=== PATIENT | female | born 1980 | race Caucasian/White ===

== ENCOUNTER 2018-02-21 13:26 | Observation (INO) ==
--- NOTE | 2018-02-21 14:00 | Anesthesia Evaluation PreOp ---
Date of Encounter: 02/21/18 Time of Encounter: 14:49 - Past History Planned Operation: LAP APPENDECTOMY Cardiac History: Denies any Significant Hx Pulmonary History: Denies Any Significant HX LEAD REFINER History: Other (ANXIETY, DEPRESSION) Other Medical History: Thyroid, Other (MTHFR MUTATION, DIAGNOSED DURING , NO HISTORY OF DVT. PSORIASIS) Anesthesia History: No Prior Anesthetic Complications, Past Anesthesia : No Test: Negative Alcohol Use: occasionally Drug use: none Medications and Allergies Cholecalciferol (Vitamin D3) [Vitamin D3] 5,000 unit PO DAILY 09/30/15 [History] Vitamin B Complex 1 each PO DAILY 09/30/15 [History] Calcipotriene 1 applic TP DAILY 02/21/18 [History] Calcipotriene/Betamethasone [Calcipotriene-Betameth Dp Oint] 1 applic TP DAILY 02/21/18 [History] DULoxetine [Cymbalta] 30 mg PO DAILY 02/21/18 [History] Folic Acid 1 mg PO DAILY 02/21/18 [History] Levothyroxine [Synthroid] 50 mcg PO DAILY 02/21/18 [History] Allergy/AdvReac Type Severity Reaction Status Date / Time No Known Allergies Allergy Verified 02/21/18 09:34 - Meds/Allergy Pre-op Review Medications Reviewed: Yes Allergies Reviewed: Yes Beta Blockers on Current Med List: No Anesthesia Exam O2 Sat Height 1.57 m Weight 81.647 kg O2 Sat by Pulse Oximetry 98 Vital Signs Temp Pulse Resp BP Pulse Ox 98.4 F 70 16 129/66 98 02/21/18 14:00 02/21/18 14:00 02/21/18 14:00 02/21/18 14:00 02/21/18 14:00 Weight: 82 kg - BMI 33 NPO (# of Hours): 0700 - HEENT Mallampati: I Teeth: Normal Oral Opening: Greater than 3 - Cardiac Rhythm: Regular - Pulmonary Breath Sounds: bilateral Clear Respiratory Effort: Symmetrical Anesthesia Assess/Plan ASA Score: 2 Anesthetic Plan: General Monitoring Plan: Standard Monitors Recovery Plan: PACU
[2018-02-21] MEDS ORDERED: Ondansetron 4 MG/2 ML VIAL ONE ×2 (14:02→15:12)
[2018-02-21] MEDS ORDERED: Lidocaine -MPF 2% 2 ML VIAL ONE (14:02)
[2018-02-21] MEDS ORDERED: *HR* Propofol 200 MG/20 ML VIAL IVP ONE (14:02)
[2018-02-21] MEDS ORDERED: Dexamethasone 4 MG/ML VIAL ONE ×2 (14:02→15:12)
[2018-02-21] MEDS ORDERED: Lidocaine -MPF 4% 5 ML AMPUL ONE (14:02)
[2018-02-21] MEDS ORDERED: *HR* Succinylcholine 200 MG/10 ML VIAL IVP ONE (14:02)
[2018-02-21] MEDS ORDERED: *HR* Rocuronium Bromide 50 MG/5 ML VIAL ONE (14:02)
[2018-02-21] MEDS ORDERED: *HR* Midazolam HCl 2 MG/2 ML VIAL ONE (14:02)
[2018-02-21] MEDS ORDERED: *HR* FentaNYL (PF) 100 MCG/2 ML VIAL ONE (14:02)
--- NOTE | 2018-02-21 14:22 | General Surg History&Physical ---
Date of Encounter: 02/21/18 Time of Encounter: 14:00 History of Present Illness Chief complaint: Acute RLQ abd pain, acute appendicitis HPI: Ms. Gray is a 37 year old female transferred from [facility] after presenting there with abrupt onset right lower quadrant abdominal pain and nausea early this morning. The patient also complained of diarrhea. Patient presented to [facility] for further evaluation and treatment. White count was normal but CT abdomen/pelvis was indicative of early acute appendicitis. This prompted a surgical referral and transferred to [facility]. Past medical history: MTH FR, clotting disorder; depression, hypothyroidism History: 2 Allergies: No known drug allergies Medications: Synthroid, Celexa, multivitamins Social history: G5, P2, AB 3. Patient is , lives at home with her spouse and 2 children; she is a schoolteacher. The patient does not consume alcohol, tobacco or use illicit drugs. Physical examination: Age-appropriate, overweight female who appears to be in no acute distress. Skin: Warm, no obvious jaundice Lungs: Clear to auscultation, no abdominal pain on deep inspiration Cardiac: Regular rate, no appreciable murmurs Abdomen: soft with tenderness in the right lower quadrant just cephalad and medial to the anterior superior iliac spine. Bowel sounds hypoactive No discernible intra-abdominal masses; no rebound. Extremities: No obvious clubbing, cyanosis, or edema. CT abdomen/pelvis reviewed Laboratories: White count 10.0, differential within normal limits; hemoglobin 13.3, hematocrit 39.2. Platelets 220,000 Electrolytes, BUN, creatinine within normal limits Serum negative Impression: 37-year-old female transferred from a [facility] after presenting there with abrupt onset right lower quadrant abdominal pain with nausea. Clinical exam and CT abdomen/pelvis consistent with early acute appendicitis. Treatment options include expectant follow-up with IV antibiotics and close clinical monitoring versus surgical intervention. The patient is a reasonable candidate for laparoscopic appendectomy. The patient expressed a preference to proceed with surgery. The procedure was discussed. Risks include hemorrhage, infection, injury to adjacent structures such as colon, small bowel, ureters, bladder. The patient has a clotting disorder, this may increase her vascular risks postoperatively. The patient is aware that if a normal appendix is encountered it will be removed regardless. An open appendectomy may be necessary laparoscopic procedure cannot be completed safely. Plan: Laparoscopic appendectomy possible open appendectomy with subsequent [facility] admission to the surgical floor for postoperative care. Past Med Surg Social Fam HX - Past Medical History Medical history: thyroid disease Additional medical history: MTHR Psychiatric history: no psych history - Past Surgical History Surgical History: Additional surgical history: metal plate in head - Social History Smoking Status: Never smoker Smokeless Tobacco Status: No Alcohol use: occasionally Drug use: none Medications and Allergies Cholecalciferol (Vitamin D3) [Vitamin D3] 5,000 unit PO DAILY 09/30/15 [History] Vitamin B Complex 1 each PO DAILY 09/30/15 [History] DULoxetine [Cymbalta] 30 mg PO DAILY 02/21/18 [History] Folic Acid 1 mg PO DAILY 02/21/18 [History] Levothyroxine [Synthroid] 50 mcg PO DAILY 02/21/18 [History] Allergy/AdvReac Type Severity Reaction Status Date / Time No Known Allergies Allergy Verified 02/21/18 09:34 Review of Systems All systems PM: The remainder of the systems were reviewed and are negative General Surgery Exam Initial Vital Signs Temp Pulse Resp BP Pulse Ox 98.4 F 70 16 129/66 98 02/21/18 14:00 02/21/18 14:00 02/21/18 14:00 02/21/18 14:00 02/21/18 14:00 Results - Labs All other labs normal.
[2018-02-21] MEDS ORDERED: Scopolamine Patch 1.5 MG PATCH.TD72 ONE (14:43)
[2018-02-21] MEDS ORDERED: cefOXitin 2,000 MG in Water for inj. (sterile) 20 ML 20 ML IVP ONE (15:08)
[2018-02-21] MEDS ORDERED: CefOXitin 2,000 MG VIAL ONE (15:12)
[2018-02-21] MEDS ORDERED: Ketorolac 30 MG/ML VIAL ONE (15:13)
[2018-02-21] MEDS ORDERED: *HR* OxyCODONE Immed Rel 5 MG TABLET PO PRN ×2 (15:48→16:53)
[2018-02-21] MEDS ORDERED: *HR* HYDROmorphone (PF) 1 MG/ML SYRINGE IVP PRN (15:48)
[2018-02-21] MEDS ORDERED: *HR* Promethazine 25 MG/ML VIAL IVP PRN ×2 (15:48→16:53)
[2018-02-21] MEDS ORDERED: Albuterol 2.5 MG/3 ML NEBULIZER IH ONE (15:48)
--- NOTE | 2018-02-21 16:09 | Anesthesia Evaluation Post Op ---
Date of Encounter: 02/21/18 Time of Encounter: 16:30 - Discharge PostOp Status: Transfer Patient to floor (Patient's vital signs have been reviewed. Patient is stable postoperatively and has adequately recovered from anesthesia. Patient is determined to have stable airway patency and respiratory function including respiratory rate and oxygen saturation. Patient has a stable heart rate, blood pressure and adequate hydration. Patients mental status is acceptable. Patients temperature is appropriate. Pain and nausea are adequately controlled.)
[2018-02-21] MEDS ORDERED: Ringers Solution, Lactated 500 ML IVC ONE (16:15)
--- NOTE | 2018-02-21 16:21 | Operative Note ---
Date of procedure: 02/21/18 Pre-op diagnosis: Acute appendicitis Post-op diagnosis: same Procedure: Laparoscopic appendectomy Complications: None apparent Anesthesia: GETA Local Anesthetics: 0.25% Sensorcaine HCL with Epinephrine 1:200,000 SubQ (cc) (20 mL) Surgeon: Sandor Mckinney Was there an butcher assistant present: No Estimated blood loss (cc): 2 IV fluids (cc): 800 Specimen: appendix Condition: stable Disposition: PACU Procedure in Detail: The patient was brought to the operating room where she was placed supine on the procedure table. The patient was appropriately identified as to person and proc edure. The accuracy of this information was confirmed by the patient and procedure team. The patient was then intubated and anesthetized under the supervision of Dr. Luis. The abdomen was prepped and draped in usual sterile fashion. An examined under anesthesia the no palpable intra-abdominal masses. Several milliliters of 0.25% bupivacaine with 1 200,000 epinephrine was infiltrated into the infraumbilical skin. A small transverse incision was made. Dissection was extended to the fascia. Additional bupivacaine was infiltrated into the fascia. The fascia was grasped, elevated, and incised. An 11 mm Xcel port was established. The rigid laparoscope was placed within the obturator to visualize passage through the layers of the anterior abdominal wall. When the abdominal cavity was accessed, the obturator was replaced by the rigid laparoscope, the abdomen was insufflated with gaseous carbon dioxide. There was no obvious visible injury from establishing the port. Recta visualization a 5 mm port was placed in the suprapubic midline. The uterus was adherent to the anterior abdominal wall. Port placement was selected above or cephalad to the adherent uterus. A 12 mm port was established in left lower quadrant midclavicular line. Both of these sites were infiltrated with the bupivacaine with epinephrine solution. The appendix was readily identified, grasped, and elevated. The mesoappendix was divided with the endoscopic [place] dissectors at the junction between the appendix and the cecum. An Ethicon ATS 45 mm stapler was then passed through this mesenteric defect to transect the appendix at its junction with the cecum. The mesoappendix was then divided with a second application of the Ethicon ATS stapler, using a vascular cartridge. The appendix was placed in an endoscopic pouch and removed through the infraumbilical opening. The appendix demonstrated mild inflammation. No perforation was identified. The appendix was recovered and sent to pathology. The staple lines were inspected and found to be intact. The instrumentation was removed, the pneumoperitoneum evacuated. The fascia of the infraumbilical opening and the 11 mm port were closed with interrupted [id number] 0 Vicryl using S retractors. The skin edges were then approximated with subcuticular 4-0 Vicryl. The incisions were sealed with Dermabond dermal adhesive. The patient was taken to recovery in stable condition. Needle, sponge, and instrument counts were correct at the close of the case. Total volume of bupivacaine with epinephrine used, 20 mL.
[2018-02-21] MEDS ORDERED: Acetaminophen 325 MG TABLET PO PRN (16:53)
[2018-02-21] MEDS ORDERED: Ondansetron 4 MG/2 ML VIAL IVP PRN (16:53)
[2018-02-21] MEDS: Ringers Solution, Lactated 1,000 ML IVC SCH (17:18)
[2018-02-21] MEDS: *HR* Enoxaparin 40 MG/0.4 ML SYRINGE SQ SCH (18:47)
[2018-02-22] MEDS: *HR* OxyCODONE/APAP 5/325 TABLET PO PRN ×2 (02:30→11:23)
[2018-02-22 04:56] LABS: Hematocrit 34.5 % (35.3-44.9); Hemoglobin 11.6 g/dL (11.5-15.4); Mean Corpuscular HGB Conc 33.6 g/dL (31.6-35.5); Mean Corpuscular Hemoglobin 29.3 pg (28.0-33.3); Mean Corpuscular Volume 87.1 fL (83.0-100.0); Mean Platelet Volume 10.8 fL (9.4-12.4); Platelet Count 205 K/mcL (140-400); Red Blood Count 3.96 M/mcL (3.82-4.97)
[2018-02-22] MEDS: *HR* Enoxaparin 40 MG/0.4 ML SYRINGE SQ SCH (05:43)
[2018-02-22] MEDS: Ringers Solution, Lactated 1,000 ML IVC SCH (05:46)
[2018-02-22 11:32] VITALS: BP 109/70
--- NOTE | 2018-02-22 14:06 | General Surgery Progress Note ---
Date of Encounter: 02/22/18 Time of Encounter: 14:02 Subjective Patient reports: feels better Narrative: General Surgery - Progress Note / Discharge Summary POD #1 Feeling much improved; right lower quadrant abdominal pain resolved. Patient complaining of minimal infraumbilical port site tenderness which is expected after laparoscopic appendectomy. Afebrile, hemodynamically stable with pulse 68, respirations 17, blood pressure 109/70. Lungs: Clear abdomen: Soft with minimal infraumbilical port site tenderness. Port sites intact and healing well. Labs: WBC 9.2, hemoglobin 11.6, hematocrit 44.5, platelet count 205,000. Impression/Plan: Acute appendicitis. Postoperative day #1, status post laparoscopic appendectomy Acceptable postoperative status. Discharge home. [facility] clotting disorder - discussed with Patricia hematology; no requirement for Lovenox in the postoperative period Outpatient follow-up, 03/01/18. Objective Vital Signs - Last 8 Hours Temp Pulse Resp BP Pulse Ox 02/22/18 11:23 98.0 F 68 17 109/70 97 02/22/18 07:04 98.1 F 64 14 102/65 96 Intake and Output 02/21/18 02/22/18 02/22/18 23:59 07:59 15:59 Intake Total 1000 / 1000 1625 / 1625 Output Total 2049 900 / 900 500 / 500 Balance -2049 / -2049 100 / 100 1125 / 1125 Intake: IV Fluids 1000 / 1000 545 / 545 Lactated Ringers 1,000 ML @ 75 1000 / 1000 525 / 525 mls/hr IVC .[id number] [id number] Rx#: [id number] Oral 1080 / 1080 Output: Urine 2049 900 / 900 500 / 500 Other: Meal Breakfast Percent of Meal Consumed 100% Weight 88.167 kg Patient Weight 02/22/18 23:59 Weight 88.167 kg - Labs 02/22/18 04:03 Consult Discharge Plan - Plan Referrals: Grant Lau MD [Primary Care Provider] -
--- NOTE | 2018-02-22 14:10 | Discharge Summary ---
Outpatient Proc Discharge Plan - Plan Instructions: Laparoscopic Appendectomy (DC) Additional Instructions: Regular diet Activity as tolerated, lifting to less than 20 pounds Patient may shower, wash incision with soap and water Patient to resume home meds Tylenol, ibuprofen, Motrin, Advil, etc. as needed for pain Description for Percocet 5/325, #8, one every 6 hours as needed for pain not relieved by [id number] medications Outpatient surgical follow-up 03/01/18. Prescriptions: OxyCODONE/APAP 5/325 [Percocet 5/325 MG] 1 each PO Q6H PRN 2 Days #8 tablet PRN Reason: Pain Home Medications: Cholecalciferol (Vitamin D3) [Vitamin D3] 5,000 unit PO DAILY 09/30/15 [History] Vitamin B Complex 1 each PO DAILY 09/30/15 [History] Calcipotriene 1 applic TP DAILY 02/21/18 [History] Calcipotriene/Betamethasone [Calcipotriene-Betameth Dp Oint] 1 applic TP DAILY 02/21/18 [History] DULoxetine [Cymbalta] 30 mg PO DAILY 02/21/18 [History] Folic Acid 1 mg PO DAILY 02/21/18 [History] Levothyroxine [Synthroid] 50 mcg PO DAILY 02/21/18 [History] Acetaminophen [Tylenol] 650 mg PO Q6H PRN tablet 02/22/18 [Rx] OxyCODONE/APAP 5/325 [Percocet 5/325 MG] 1 each PO Q6H PRN 2 Days #8 tablet 02/22/18 [Rx] Forms (Work/Release): ED Satisfaction Letter, Work/School Release
== END 2018-02-22 14:23 | disposition home or self-care (01) ==
LOC: EMEROOARM 13:26 → 3BNU 13:26
PROVIDERS: ADMIT Surgery; ATTEND Surgery